=== PATIENT | male | born 1950 | race Caucasian/White ===

== ENCOUNTER 2017-01-14 09:49 | Emergency (ER) | payer MEDICARE, OTHER ==
--- OUTSIDE RECORDS SUMMARY | 2017-01-14 10:31 | XMS REPORT | Continuity of Care Document ---
:1950 Author Organization [employer] [place] [address] Care Team Providers Name Role Phone Alka Casarez Sarabjit Primary Care Provider [phone] Source Comments This disclosure is being made pursuant to the [employer] program and maynot contain all information available regarding this patient.[employer] Active Allergies and Adverse Reactions Not on File Current Medications Be aware that medications may not be up to date as of this document. Alwaysverify current medications with the patient. Not on file Active Problems Not on file Immunizations Name Dates Previously Given Next Due Influenza Split 08/16/2013 Social History Tobacco Use Types Packs/Day Years Used Date Never Smoker Last Filed Vital Signs Vital Sign Reading Time Taken Blood Pressure 122/80 08/17/2013 9:40 AM CDT Pulse 84 08/17/2013 9:40 AM CDT Temperature 36.8 C (98.2 F) 08/02/2012 9:23 AM CDT Respiratory Rate - - Height 1.746 m (5' 8.75") 08/02/2012 9:23 AM CDT Weight 79.833 kg (176 lb) 08/17/2013 9:40 AM CDT Body Mass Index 26.19 08/17/2013 9:40 AM CDT Oxygen Saturation - - Plan of Care Health Maintenance Due Date Last Done Comments Tetanus/Pertussis (1 - Tdap) 1970 Colonoscopy 2001 Well Adult Visit 2001 Zoster Vaccine 60+ 2011 Influenza Immunization (#1) 2016 08/16/2013 Results from Last 3 Months Not on file
--- OUTSIDE RECORDS SUMMARY | 2017-01-14 10:31 | XMS REPORT | Continuity of Care Document ---
:1950 Author Organization [facility] ([facility]) Address [address] [place] [address] Phone [phone] Care Team Providers Name Role Phone Romeo Harding Primary Care Provider [phone] Source Comments This disclosure is being made pursuant to the Care Everywhere program, applicable federal and state laws, and may not contain all informaitonavailable regarding this patient.[facility] ([facility]) Active Allergies and Adverse Reactions Allergen Noted Date Severity Reactions Comments Shellfish Containing Products 07/27/2015 Nausea & Vomiting,Diarrhea Current Medications Prescription Sig. Disp. Refills Start Date End Date Status SERTraline 50 mg tablet Take 50 mg by mouth Active daily Active Problems Problem Noted Date Abnormal liver enzymes 08/15/2015 Nonalcoholic fatty liver disease 08/15/2015 Social History Tobacco Use Types Packs/Day Years Used Date Never Smoker Smokeless Tobacco: Former User Snuff Quit: 11/09/1996 Tobacco Cessation:Counseling Given: Yes Comments: Alcohol Use Drinks/Week oz/Week Comments No Last Filed Vital Signs Vital Sign Reading Time Taken Blood Pressure 138/80 07/27/2015 7:00 AM CDT Pulse 65 07/27/2015 7:00 AM CDT Temperature 36.5 C (97.7 F) 07/27/2015 7:00 AM CDT Respiratory Rate - - Height 1.753 m (5' 9") 07/27/2015 7:00 AM CDT Weight 80 kg (176 lb 5.9 oz) 07/27/2015 7:00 AM CDT Body Mass Index 26.03 07/27/2015 7:00 AM CDT Oxygen Saturation - - Plan of Care Health Maintenance Due Date Last Done Comments Hepatitis B Vaccine (1 of 3 - Primary Series) 1950 Tdap Vaccine 1962 Lipid Disorder Screening 1969 Td Vaccine 1969 Colonoscopy 08/20/2001 Prostate Cancer Screening 2001 Zoster Vaccine 2011 Influenza Vaccine: Seasonal (#1) 06/09/2016 Pneumococcal Vaccine (1 of 2 - PCV13) 2016 HCV Screening Completed 07/27/2015 Results from Last 3 Months Not on file
--- NOTE | 2017-01-14 10:44 | ERNOTE ---
Lower Extremity HPI - Narrative Date of Service: 01/14/17 - General Lower Extremities Pain: other: left - lumbosacral area Time Seen by Provider: 01/14/17 10:16 Source: patient Exam Limitations: no limitations - Immun/Allergies/Home Medications Immunizations: IMMUNIZATION HX History of Influenza Vaccine Yes Hx Pneumococcal Vaccination Yes Allergies/Adverse Reactions: Allergies Allergy/AdvReac Type Severity Reaction Status Date / Time Shellfish *RETIRED-06/13/13 Allergy Unknown Vomiting Verified 01/14/17 10:01 [Shellfish] Home Medications: HOME MEDICATIONS Multivitamin [Multivitamins] 1 each PO DAILY 10/08/12 [Last Taken 02/01/13] Citalopram Hydrobromide [Celexa] 20 mg PO DAILY 02/04/13 [Last Taken Unknown] Cyclobenzaprine HCl [Flexeril] 10 mg PO TID PRN #30 tab 01/14/17 [Last Taken Unknown] Naproxen [Naprosyn] 500 mg PO BID #60 tablet 01/14/17 [Last Taken Unknown] traMADol HCL [Ultram] 50 mg PO QID PRN #20 tablet 01/14/17 [Last Taken Unknown] - History of Present Illness Narrative: She states she was unloading much voided approximately 3 days ago and apparently from the repeated stress he strained his low back area. He does complain of periodic muscle spasm in the lumbosacral area on the left and every so often a shooting pain down the sciatic nerve down through the buttock area as well. Patient denies any pain at this particular time except for pain upon palpation and extremes of the range of motion. Occurred: other - 3 days ago pt unloaded a bunch of wood and sprained his low back area Loss of Consciousness: Reports: no loss of consciousness Other Injuries: Reports: none Review of Systems - Review of Systems Constitutional: Present: See HPI EYE: Present: no symptoms reported ENT: Present: no symptoms reported Respiratory: Present: no symptoms reported Cardiology: Present: no symptoms reported Gastrointestinal/Abdominal: Present: no symptoms reported Genitourinary: Present: no symptoms reported Musculoskeletal: Present: See HPI Skin: Present: no symptoms reported Neurological: Present: no symptoms reported Endocrine: Present: no symptoms reported Hematologic/Lymphatic: Present: no symptoms reported Psych: Present: no symptoms reported - Patient's Past Medical History Patient History - Medical: No pertinent hx, Other - Cervical spinal stenosis Patient History - Cardiac/Respiratory: No pertinent hx Patient History - Cancer: No Hx of Cancer Patient History - Surgical Procedures: Total Hip Replacement Patient History - Other: None - Social History Living Situations: home Psych History: No pertinent hx Alcohol Use: none Drug Use: none - Immunizations Hx Pneumococcal Vaccination: Yes History of Influenza Vaccine: Yes Physical Exam - Physical Exam General Appearance: Present: wd/wn, alert, mild distress Eye Exam: Normal inspection: bilateral, PERRL: bilateral Ears, Nose, Throat: Present: normal ENT inspection, H, normal pharynx Neck: Present: normal inspection, nontender Respiratory: Present: no respiratory distress, normal breath sounds, no accessory muscle use, chest nontender, lungs clear Cardiovascular/Chest: Present: regular rate, rhythm, no murmur, normal peripheral pulses Gastrointestinal/Abdominal: Present: normal bowel sounds, nontender, nondistended, soft, no organomegaly Rectal Exam: Present: deferred Extremity Exam: Present: normal inspection, non-tender, no edema, normal range of motion Neurological Exam: Present: alert, oriented, normal mood/affect Skin Exam: Present: normal color, warm/dry Lymphatic Exam: Present: no adenopathy ED Progress - Vital Signs Patient's Vital Signs:: I have reviewed the patient's vital signs. Vital Signs: Vital Signs 01/14/17 09:56 Temperature 36.2 C L Pulse Rate 64 Respiratory 12 Rate Blood Pressure 140/89 O2 Sat by Pulse 98 Oximetry - X-Ray X-Ray #1 X-Ray: lumbosacral Interpretation: Reviewed by me - Progress/Reassessment Chief Complaint: Hip Pain/Injury Progress:: Unchanged - Transfer of Care Expected Disposition: Discharge Plan - Plan Plan: Patient has a known cervical spinal stenosis so it is very reason to assume that this could be part of the problem going on in the lumbosacral region as well. Has appointment for a full physical see a physician tomorrow we will start him on Flexeril and Naprosyn some tramadol for breakthrough pain and he will his family doctor will make whatever adjustment in the treatment as he deems necessary. Departure Clinical Impression: Lumbosacral pain Sciatica Qualifiers: Laterality: left Qualified Code(s): M54.32 - Sciatica, left side - Departure Disposition: Home self-care Condition: Good Instructions: Back Pain, Adult, Sciatica, [id number] Referrals: Romeo Harding DO [Primary Care Provider] - Prescriptions: Cyclobenzaprine HCl [Flexeril] 10 mg PO TID PRN #30 tab PRN Reason: MUSCLE SPASMS Naproxen [Naprosyn] 500 mg PO BID #60 tablet traMADol HCL [Ultram] 50 mg PO QID PRN #20 tablet PRN Reason: Moderate Pain
[2017-01-14 12:23] VITALS: BP 136/87
== END 2017-01-14 12:24 | disposition home or self-care (01) ==
LOC: ER 09:49
DX: M54.32 Sciatica, left side (principal)